=== PATIENT | female | born 1980 | race African-American/Black ===

== ENCOUNTER 2019-03-06 20:04 | Emergency (ER) | payer OTHER ==
[2019-03-06 20:23] VITALS: BP 129/68; PULSE 130; TEMP 98.7; BMI 24.6
[2019-03-06] MEDS ORDERED: FAMOTIDINE 20 MG/50 ML IVPB 20 MG/50 ML MG IVPB ONE (20:59)
[2019-03-06] MEDS ORDERED: SODIUM CHLORIDE 1,000 ML IV STA (20:59)
[2019-03-06] MEDS ORDERED: methylPREDNISolone NA SUCC 125 MG/2 ML VIAL IVPUSH ONE (20:59)
--- NOTE | 2019-03-06 22:39 | PDOC ---
History of Present Illness - General History Source: Patient Exam Limitations: No Limitations <AmauryvianeyRosa - Last Filed: 03/06/19 22:26> <Eileen Ellis - Last Filed: 03/06/19 23:02> - General Chief Complaint: Allergic Reaction Stated Complaint: HIVES/RASHES/SWELLING Time Seen by Provider: 03/06/19 20:53 Past History - Travel Traveled outside of the country in the last 30 days: No Close contact w/someone who was outside of country & ill: No - Past Medical History COPD: No Thyroid Disease: Yes Other medical history: Graves disease - Psycho Social/Smoking Cessation Hx Smoking History: Never smoked Information on smoking cessation initiated: No Hx Alcohol Use: No Drug/Substance Use Hx: No <Rosa Alfaro - Last Filed: 03/06/19 22:26> <Eileen Ellis - Last Filed: 03/06/19 23:02> - Past Medical History Allergies/Adverse Reactions: Allergies Allergy/AdvReac Type Severity Reaction Status Date / Time methimazole Allergy Verified 03/06/19 23:00 Home Medications: Ambulatory Orders Acetaminophen [Tylenol] 650 mg PO PRN 03/06/19 Diphenhydramine HCl [Benadryl -] 25 mg PO Q8H #21 capsule 03/06/19 Famotidine [Pepcid -] 20 mg PO BID #14 tablet 03/06/19 Methylprednisolone [Medrol Dose Gabe] 4 mg PO ASDIR #21 tablet 03/06/19 Review of Systems - Review of Systems Able to Perform ROS?: Yes Comments:: 03/06/19 22:26 CONSTITUTIONAL: Absent: fever, chills, diaphoresis, generalized weakness, malaise, loss of appetite HEENT: Absent: rhinorrhea, nasal congestion, throat pain, throat swelling, difficulty swallowing, mouth swelling, ear pain, eye pain, visual Changes CARDIOVASCULAR: Absent: chest pain, loss of consciousness, palpitations, irregular heart rate, peripheral edema RESPIRATORY: Absent: cough, shortness of breath, dyspnea with exertion, orthopnea, wheezing, stridor, hemoptysis GASTROINTESTINAL: Absent: abdominal pain, abdominal distension, nausea, vomiting, diarrhea, constipation, melena, hematochezia GENITOURINARY: Absent: dysuria, frequency, urgency, hesitancy, hematuria, flank pain, genital pain MUSCULOSKELETAL: Absent: myalgia, arthralgia, joint swelling SKIN: Present: itching, rash Absent: rash, itching, pallor NEUROLOGIC: Absent: headache, focal weakness or paresthesias, dizziness, unsteady gait, seizure, mental status changes, bladder or bowel incontinence PSYCHIATRIC: Absent: anxiety, depression, suicidal or homicidal ideation, hallucinations. Is the patient limited [place]i proficient: No <AngelinaRosa - Last Filed: 03/06/19 22:26> *Physical Exam - Vital Signs Last Vital Signs Temp Pulse Resp BP Pulse Ox 98.7 F 130 H 17 129/68 100 03/06/19 20:19 03/06/19 20:19 03/06/19 20:19 03/06/19 20:19 03/06/19 20:19 - Physical Exam 03/06/19 22:39 GENERAL: Well developed, well nourished. Awake and alert. No acute distress. HEENT: Normocephalic, atraumatic. PERRLA, EOMI. No conjunctival pallor. Sclera are non- icteric. Moist mucous membranes. Oropharynx is clear. NECK: Supple. Full ROM. CARDIOVASCULAR: Regular rate and rhythm. No murmurs, rubs, or gallops. Distal pulses are 2+ and symmetric. PULMONARY: No evidence of respiratory distress. Lungs clear to auscultation bilaterally. No wheezing, rales or rhonchi. ABDOMINAL: Soft. Non-tender. Non-distended. No rebound or guarding. No organomegaly. Normoactive bowel sounds. MUSCULOSKELETAL Normal range of motion at all joints. No bony deformities or tenderness. No CVA tenderness. EXTREMITIES: No cyanosis. No clubbing. No edema. No calf tenderness. SKIN: Erythematous, pruritic rash to the trunk, arms and legs bilaterally. Warm and dry. Normal capillary refill. No rashes. No jaundice. NEUROLOGICAL: Alert, awake, appropriate. Cranial nerves 2-12 intact. No deficits to light touch and temperature in face, upper extremities and lower extremities. No motor deficits in the in face, upper extremities and lower extremities. Normoreflexic in the upper and lower extremities. Normal speech. Toes are down- going bilaterally. Gait is normal without ataxia. PSYCHIATRIC: Cooperative. Good eye contact. Appropriate mood and affect. <Rosa Alfaro - Last Filed: 03/06/19 22:26> - Vital Signs Last Vital Signs Temp Pulse Resp BP Pulse Ox 98.7 F 130 H 17 129/68 100 03/06/19 20:19 03/06/19 20:19 03/06/19 20:19 03/06/19 20:19 03/06/19 20:19 <RhondaEileen Fine - Last Filed: 03/06/19 23:02> ED Treatment Course - Medications Given in the ED: ED Medications Discontinued Medications Generic Name Dose Route Start Last Admin Trade Name Freq PRN Reason Stop Dose Admin Diphenhydramine HCl 50 mg 03/06/19 20:59 03/06/19 21:15 Benadryl Injection - IVPUSH 03/06/19 21:00 50 mg ONCE ONE Administration Famotidine/Sodium Chloride 20 mg in 50 mls @ 100 mls/hr 03/06/19 20:59 21:15 Pepcid 20 Mg Premixed Ivpb - IVPB 03/06/19 21:28 100 mls/hr ONCE ONE Administration Sodium Chloride 1,000 mls @ 1,000 mls/hr 03/06/19 20:59 03/06/19 21:05 Normal Saline - IV 03/06/19 21:58 1,000 mls/hr ASDIR STA Administration Methylprednisolone Sodium Succinate 125 mg 03/06/19 20:59 03/06/19 21:15 Solu-Medrol - IVPUSH 03/06/19 21:00 125 mg ONCE ONE Administration <Rosa Alfaro - Last Filed: 03/06/19 22:26> - Medications Given in the ED: ED Medications Discontinued Medications Generic Name Dose Route Start Last Admin Trade Name Freq PRN Reason Stop Dose Admin Diphenhydramine HCl 50 mg 03/06/19 20:59 03/06/19 21:15 Benadryl Injection - IVPUSH 03/06/19 21:00 50 mg ONCE ONE Administration Famotidine/Sodium Chloride 20 mg in 50 mls @ 100 mls/hr 03/06/19 20:59 21:15 Pepcid 20 Mg Premixed Ivpb - IVPB 03/06/19 21:28 100 mls/hr ONCE ONE Administration Sodium Chloride 1,000 mls @ 1,000 mls/hr 03/06/19 20:59 03/06/19 21:05 Normal Saline - IV 03/06/19 21:58 1,000 mls/hr ASDIR STA Administration Methylprednisolone Sodium Succinate 125 mg 03/06/19 20:59 03/06/19 21:15 Solu-Medrol - IVPUSH 03/06/19 21:00 125 mg ONCE ONE Administration <Eileen Ellis - Last Filed: 03/06/19 23:02> Medical Decision Making - Medical Decision Making 03/06/19 22:40 Patient is 38-year-old female with past medical history of hyperthyroidism, on methimazole, presents the ER with a rash to her entire body. She states that she is allergic to methimazole however she has hyperthyroidism. She saw her machine striper who wanted to restart her methimazole given her recent thyroid scan. She states that after taking the methimazole she broke out in a rash. She states that the back of her throat is also itchy. Denies difficulty breathing, wheezing, stridor, nausea, vomiting. A/P: Allergic reaction On exam the throat is non-erythematous, uvula is midline without edema No stridor, no wheezing noted. Lungs are clear to auscultation bilaterally Patient with erythematous pruritic rash to her entire body sparing the palms and scalp. Patient tachycardic as noted on triage vitals, patient states that she has not taken her propranolol today and that is why her heart rate is elevated secondary to the hyperthyroidism. Steroids, Benadryl, Pepcid given in the ER with relief of symptoms. Rash has subsided Have patient stop methimazole follow-up with her machine striper tomorrow. Strict return precautions given. I discussed the physical exam findings, ancillary test results and final diagnoses with the patient. I answered all of the patient's questions. The patient was satisfied with the care received and felt comfortable with the discharge plan and treatment plan. The Patient agrees to follow up with the primary care physician/specialist within 24-72 hours. Return precautions were given. <Rosa Alfaro - Last Filed: 03/06/19 22:26> - Medical Decision Making The patient was seen and evaluated in conjunction with midlevel provider under my direct supervision, ancillary studies were reviewed. I agree with the plan as outlined with MAY Alfaro. HPI, workup/dispo as outlined. VS reviewed, initially tachy, HD appropriate. no hypotension treated as allergic reaction, steroids, benadryl, H2 blockers symptoms improved. anticipate discharge, pcp followup, return precautions 03/06/19 23:01 03/06/19 23:01 <Eileen Ellis - Last Filed: 03/06/19 23:02> Discharge - Discharge Information Problems reviewed: Yes - Admission No <Rosa Alfaro - Last Filed: 03/06/19 22:26> <Eileen Ellis - Last Filed: 03/06/19 23:02> - Discharge Information Clinical Impression/Diagnosis: Allergic reaction Qualifiers: Encounter type: initial encounter Qualified Code(s): T78.40XA - Allergy, unspecified, initial encounter Condition: Stable Disposition: HOME - Additional Discharge Information Prescriptions: Diphenhydramine HCl [Benadryl -] 25 mg PO Q8H #21 capsule Famotidine [Pepcid -] 20 mg PO BID #14 tablet Methylprednisolone [Medrol Dose Gabe] 4 mg PO ASDIR #21 tablet - Follow up/Referral Referrals: Digna Vargas MD [Primary Care Provider] - - Patient Discharge Instructions Patient Printed Discharge Instructions: DI for Adverse Drug Reaction -- Allergic Additional Instructions: Your evaluated for your rash today. Is most likely an allergic reaction from the methimazole. Please stop taking the methimazole and follow-up with your machine striper tomorrow. Please take the steroids, Pepcid, and Benadryl as directed Return to the ER for difficulty breathing, wheezing, worsening rash or or if you have any changes in your symptoms. - Post Discharge Activity
== END 2019-03-06 23:04 | disposition home or self-care (01) ==
LOC: JERFT 20:04
PROC: 3E033GC Introduction of Other Therapeutic Substance into Peripheral Vein, Percutaneous Approach (ICD-10-PCS; principal; 2019-03-06)
DX: T78.40XA Allergy, unspecified, initial encounter (principal); Z88.8 Allergy status to other drugs, medicaments and biological substances
CPT/HCPCS: 99282-25; J7030